=== PATIENT | female | born 1965 | race Caucasian/White ===

== ENCOUNTER 2017-01-16 10:32 | Day surgery (SDC) | payer MEDICAID ==
[~2017-01-16] VITALS: Ht 157.5 cm; Wt 90.5 kg
[2017-01-16 11:48] LABS: HEMATOCRIT 47.9 % (36.0-48.0); HEMOGLOBIN 15.5 g/dL (12-16); MCH 28.6 pg (26.0-34.0); MCHC 32.4 g/dL (31.0-37.0); MCV 88.4 fL (80.0-100.0); MEAN PLATELET VOLUME 12.5 fL (7.4-10.4); RBC 5.42 10x6/uL (4.00-5.40); RDW 15.2 % (11.5-14.5); WBC 6.9 10x3/uL (4.8-10.8)
[2017-01-16] MEDS ORDERED: CELEXA20 MG PO (13:51)
[2017-01-16] MEDS ORDERED: AMITIZA24 MCG PO (13:51)
[2017-01-16] MEDS ORDERED: ROSACEA CREAM (13:52)
[2017-01-16] MEDS ORDERED: ACETAMINOPHEN500 M1 PO (13:52)
[2017-01-16] MEDS ORDERED: MIRALAX17 GM PO (13:53)
[2017-01-16] MEDS ORDERED: PROAIR HFA8.5 GM INH (13:53)
[2017-01-16 14:11] VITALS: BP 110/60; Ht 157.5 cm; Wt 90.5 kg
[2017-01-16] MEDS ORDERED: NEXIUM40 MG PO (16:15)
--- NOTE | 2017-01-22 12:04 | OP ---
PATIENT NAME: LISY DE LA O MEDICAL RECORD: [id number] :69 LOCATION:D[facility] ADMISSION DATE: SURGEON: RAFA BRAGA DO DATE OF OPERATION: 01/16/2017 PROCEDURE: Esophagogastroduodenoscopy with biopsy ENDOSCOPIST: Rafa Braga DO SCOPE: Olympus video gastroscope. MEDICATIONS: Propofol 100 mg per anesthesia. INDICATIONS FOR TIVA: COPD and tobacco abuse as well as obesity. INDICATIONS FOR PROCEDURE: Heartburn, pain provoked by eating and abdominal pain in the right upper quadrant. FINDINGS: Informed consent was given. The patient was made comfortable with the above medication. After reaching an adequate level of sedation by slow IV push, the patient was placed in her left side. The endoscope was then advanced through the mouth under direct visualization to the second portion of the duodenum. The proximal, middle and distal thirds of the esophagus had normal mucosa. At the GE junction, there was some very mild grade A reflux induced esophagitis. Scope was advanced in the stomach and retroflexed to view the cardia, where a small sliding hiatal hernia was present. Scope was then advanced down through the body of the stomach down to the antrum and prepyloric region. The body and antrum revealed some gastritis evidenced by some granularity and erythema as well as friability of the mucosa. In the distal antrum and prepyloric region, there was a gastric ulcer, which had a clean base. It measured approximately 4 mm in diameter and was superficial. There were no bleeding stigmata present. Scope was then advanced through the pylorus into the duodenum where the bulb and second portion of the duodenum appeared normal. The scope was brought back into the stomach where random biopsies were taken of the stomach and sent for histology. Scope was then withdrawn from the patient. The patient tolerated the procedure well and there were no complications. ESTIMATED BLOOD LOSS: Less than 5 cc. IMPRESSION: 1. LA class A, mild reflux induced esophagitis. 2. Small sliding hiatal hernia. 3. Peptic ulcer disease. 4. Gastritis, biopsied with cold forceps. PLAN AND RECOMMENDATIONS: 1. Restart Nexium at 40 mg daily and continue for 8 weeks' duration. 2. We will need a repeat endoscopy to look at healing of ulceration. If the ulcer is not healing, biopsies will be taken at that time. 3. Recommend a PIPIDA scan to look at the function of the gallbladder. 4. Consider gastric emptying study, if all other studies are normal and the patient continues to have abdominal pain. TRANSINT:[id number] Voice Confirmation ID: [id number] DOCUMENT ID: [id number] OPERATIVE REPORT [id number] LISY DE LA O,RAFA Zafar DO at 1204 CC: [id number] DICTATION DATE: 01/16/17 1550 ALL TERRAIN VEHICLE TECHNICIAN: 01/17/17 0031 [facility] 01/16/17 [place] [id number] [place] [address]
== END 2017-01-16 16:45 | disposition home or self-care (01) ==
LOC: D.OPS 10:32
PROVIDERS: Anesthesiology
DX: K29.71 Gastritis, unspecified, with bleeding (principal); K21.0 Gastro-esophageal reflux disease with esophagitis; K44.9 Diaphragmatic hernia without obstruction or gangrene; F17.200 Nicotine dependence, unspecified, uncomplicated; J44.9 Chronic obstructive pulmonary disease, unspecified; K27.4 Chronic or unspecified peptic ulcer, site unspecified, with hemorrhage

== ENCOUNTER → 2017-01-31 08:37 | Outpatient (CLI) | payer BC ==
[2017-01-16 14:11] VITALS: BMI 36.5
[~2017-01-31 08:37] MED LIST: ACETAMINOPHEN500 M1 PO; AMITIZA24 MCG PO; CELEXA20 MG PO; MIRALAX17 GM PO; NEXIUM40 MG PO; PROAIR HFA8.5 GM INH; ROSACEA CREAM
== END | disposition home or self-care (01) ==
LOC: D.NM 08:37
DX: R12 Heartburn (principal); R10.11 Right upper quadrant pain

== ENCOUNTER → 2017-02-08 12:34 | Outpatient (CLI) | payer BC ==
[2017-01-16 14:11] VITALS: BMI 36.5
== END | disposition home or self-care (01) ==
LOC: D.NM 12:34
DX: R12 Heartburn (principal); R10.11 Right upper quadrant pain

== ENCOUNTER 2017-04-03 10:15 | Day surgery (SDC) | payer BC ==
[~2017-04-03] VITALS: Ht 157.5 cm; Wt 91.4 kg
--- NOTE | ~2017-04-03 | OP ---
PATIENT NAME: LISY DE LA O MEDICAL RECORD: [id number] :69 [facility]ATION:[facility] ADMISSION DATE: SURGEON: NIR THAKKAR DO DATE OF OPERATION: 04/03/2017 PROCEDURE: EGD. INDICATION: Reevaluation of gastric ulcer. SCOPE: Olympus video gastroscope. MEDICATIONS: Propofol 150 mg IV per anesthesia. ESTIMATED BLOOD LOSS: None. COMPLICATIONS: None. FINDINGS: Informed consent was given. The patient was made comfortable with the above medication. After reaching an adequate level of sedation by slow IV push, the patient was placed on her left side. The endoscope was then advanced under direct visualization through the mouth to the second portion of the duodenum. The upper, middle, and distal thirds of the esophagus appeared normal. At the GE junction, there were very minimal signs of reflux esophagitis. This appeared slightly improved from her recent examination in December. Scope was advanced beyond the GE junction into the stomach and retroflexed to view the cardia of the stomach where a small sliding hiatal hernia was present. The fundus and body of the stomach appeared normal. The endoscope was advanced down into the antrum and prepyloric region where the previously identified gastric ulcer was present. There was some granulation tissue here consistent with healed ulceration. There were no exudates or other abnormalities. The endoscope was advanced beyond the pylorus into the duodenum where the bulb and second portion of the duodenum appeared normal. The endoscope was then withdrawn from the patient. The patient tolerated the procedure well and there were no complications. IMPRESSION: 1. Reflux esophagitis grade A, improved from previous. 2. Small sliding hiatal hernia. 3. Peptic ulcer disease with improvement and healing of past gastric ulcers. PLAN AND RECOMMENDATIONS: 1. Discharge home when recovery parameters are met. 2. Continue current diet. 3. Continue current medications. 4. Consider reducing Nexium used to 20 mg daily or as needed. 5. Follow up in GI clinic as needed. TRANSINT:[id number] Voice Confirmation ID: [id number] DOCUMENT ID: [id number] OPERATIVE REPORT [id number] LISY DE LA O NIR THAKKAR DO CC: [id number] DICTATION DATE: 04/03/17 1341 BILLET INSPECTOR: 04/03/17 2232 [facility] 04/03/17 [place] [address]
[2017-04-03 10:47] LABS: BASOPHILS 0.3 % (0-2); EOSINOPHILS 2.9 % (0-7); HEMATOCRIT 48.1 % (36.0-48.0); HEMOGLOBIN 15.6 g/dL (12-16); IMMATURE GRANULOCYTES 0.1 % (0-5); LYMPHOCYTES 25.7 % (15-50); MCH 29.3 pg (26.0-34.0); MCHC 32.4 g/dL (31.0-37.0); MCV 90.4 fL (80.0-100.0); MEAN PLATELET VOLUME 12.5 fL (7.4-10.4); MONOCYTES 7.4 % (2-11); NEUTROPHILS 63.6 % (40-80); RBC 5.32 10x6/uL (4.00-5.40); RDW 14.5 % (11.5-14.5); WBC 7.9 10x3/uL (4.8-10.8)
[2017-04-03 10:52] LABS: PLATELET COUNT 215 10x3/uL (130-400)
[2017-04-03 11:05] LABS: CALC OSMOLALITY 277 mosm/kg (275-300); CALCIUM 9.6 mg/dL (8.5-10.1); CARBON DIOXIDE 30.6 mmol/L (21.0-32.0); CHLORIDE - SERUM 102 mmol/L (98-107); CREATININE - SERUM 0.8 mg/dL (0.6-1.3); GLUCOSE 93 mg/dL (74-106); POTASSIUM - SERUM 4.4 mmol/L (3.5-5.1); SODIUM 140 mmol/L (136-145); UREA NITROGEN 11 mg/dL (7-18); eGFR NON AFRICAN AMERICAN 81 mL/min (90-120)
[2017-04-03] MEDS ORDERED: KEFLEX250 MG PO (11:36)
[2017-04-03 11:41] VITALS: BP 105/62; Ht 157.5 cm; Wt 91.4 kg
--- NOTE | 2017-04-03 14:26 | NUR ---
1350-RECD TO ROOM FROM GI LAB. ALERT. RESP WITH EASE. 1400-FULL LIQUIDS SERVED. 1415-NO NAUSEA. IV D/C 1420-VOIDS, DRESSED. D/C INSTRUCTIONS REVIEWED. 1422-D/C HOME VIA W/C.
== END 2017-04-03 14:22 | disposition home or self-care (01) ==
LOC: D.OPS 10:15
PROVIDERS: Anesthesiology
DX: K21.0 Gastro-esophageal reflux disease with esophagitis (principal); K44.9 Diaphragmatic hernia without obstruction or gangrene; K27.9 Peptic ulcer, site unspecified, unspecified as acute or chronic, without hemorrhage or perforation

== ENCOUNTER 2017-05-06 09:57 | Day surgery (SDC) | payer BC ==
[~2017-05-06] VITALS: Ht 157.5 cm; Wt 90.9 kg
[~2017-05-06 09:57] MED LIST changes: +KEFLEX250 MG PO
[2017-05-06 11:39] VITALS: BP 106/64; Ht 157.5 cm; Wt 90.9 kg
--- NOTE | 2017-05-06 14:31 | NUR ---
1400 FULL LIQUID TRAY PROVIDED
--- NOTE | 2017-05-06 14:31 | NUR ---
1415 NINI TRAY WELL READY TO GO HOME PER PT PIV DC W/CATHETER TIP INTACT
--- NOTE | 2017-05-06 14:45 | NUR ---
1440 ESCORTED PT OUT TO CAR W/ DRIVING
--- NOTE | 2017-05-08 16:52 | OP ---
PATIENT NAME: LISY DE LA O MEDICAL RECORD: [id number] :69 LOCATION:[facility] ADMISSION DATE: SURGEON: NIR THAKKAR DO OPERATION DATE: 05/06/17 PROCEDURE: Colonoscopy with hot forceps polypectomy. INDICATIONS FOR PROCEDURE: Left lower quadrant abdominal pain and constipation. SCOPE: Regroup Therapy video pediatric colonoscope. MEDICATIONS: Propofol 400 milligrams IV per anesthesia. WITHDRAWAL TIME: 12 minutes. ESTIMATED BLOOD LOSS: Minimal. COMPLICATIONS: None. FINDINGS: Informed consent was given. The patient was made comfortable with the above medication. After reaching an adequate level of sedation by slow IV push, the patient was placed on her left side. The endoscope was then advanced under direct visualization through the rectum to the cecum with visualization of the appendiceal orifice and ileocecal valve. The endoscope was slowly withdrawn, and the mucosa was carefully examined. In the ascending colon there was a single polyp which was benign appearing and sessile. It measured approximately 4 millimeters in size and was removed with hot forceps. In the sigmoid colon there were two separate benign appearing sessile polyps which measured approximately 3-4 millimeters in size. They were both removed with hot forceps in one piece and retrieved. The final polyp was located in the rectum. It was benign appearing and sessile. It measured approximately 4 millimeters in size. It was removed in one piece with hot forceps. The endoscope was retroflexed in the rectum where small, nonbleeding internal hemorrhoids were visualized. The endoscope was then completely withdrawn from the patient. The patient tolerated the pr ocedure well, and there were no complications. IMPRESSIONS: 1. Four separate polyps as described above. All removed with hot forceps. 2. Small nonbleeding internal hemorrhoids. 3. Abdominal pain secondary to constipation. PLAN/RECOMMENDATIONS: 1. Discharge home when recovery parameters are met. 2. Continue current medication including Amitiza 24 mcg twice a day and MiraLax as needed. 3. High fiber diet. 4. Supplement diet with Metamucil one to two tablespoons daily. 5. Follow up on biopsy specimen results. 6. Recall colonoscopy in three to five years pending pathology polyps removed today. OPERATIVE REPORT [id number] LISY DE LA O NIR THAKKAR DO at 4630 CC: [id number] DICTATION DATE: 05/06/17 1200 DECK CADET: DM 05/06/17 1501 [facility] 05/06/17 [place] [id number] [place] [id number]
== END 2017-05-06 14:40 | disposition home or self-care (01) ==
LOC: D.OPS 09:57
DX: K63.5 Polyp of colon (principal); K64.8 Other hemorrhoids; K59.00 Constipation, unspecified; Z01.812 Encounter for preprocedural laboratory examination

== ENCOUNTER → 2018-11-26 12:53 | Outpatient (CLI) | payer MEDICAID ==
[2017-05-06 11:39] VITALS: BMI 36.6
[2018-11-26 14:15] LABS: BASOPHILS 0.3 % (0-2); EOSINOPHILS 3.5 % (0-7); HEMATOCRIT 41.6 % (36.0-48.0); HEMOGLOBIN 12.6 g/dL (12-16); IMMATURE GRANULOCYTES 0.1 % (0-5); LYMPHOCYTES 26.9 % (15-50); MCH 29.1 pg (26.0-34.0); MCHC 30.3 g/dL (31.0-37.0); MCV 96.1 fL (80.0-100.0); MEAN PLATELET VOLUME 11.5 fL (7.4-10.4); MONOCYTES 5.8 % (2-11); NEUTROPHILS 63.4 % (40-80); PLATELET COUNT 181 10x3/uL (130-400); RBC 4.33 10x6/uL (4.00-5.40); RDW 12.7 % (11.5-14.5); WBC 7.7 10x3/uL (4.8-10.8)
[2018-11-26 15:16] LABS: ERYTHROCYTE SEDIMENTATION RATE 27 mm/hr (0-30)
== END | disposition home or self-care (01) ==
LOC: D.CT 12:53
PROVIDERS: Internal Medicine Gastroenterology
DX: R10.32 Left lower quadrant pain (principal); M54.5 Low back pain; K62.5 Hemorrhage of anus and rectum; R53.83 Other fatigue

== ENCOUNTER → 2019-06-17 08:21 | Outpatient (CLI) | payer MEDICAID ==
[2017-05-06 11:39] VITALS: BMI 36.6
== END | disposition home or self-care (01) ==
LOC: D.MRI 08:21
PROVIDERS: ATTEND Internal Medicine Gastroenterology
DX: K76.0 Fatty (change of) liver, not elsewhere classified (principal); R10.9 Unspecified abdominal pain; R11.0 Nausea

== ENCOUNTER 2019-09-28 08:37 | Day surgery (SDC) | payer MEDICAID ==
[~2019-09-28] VITALS: Ht 157.5 cm; Wt 909.1 kg
[2019-09-28 09:09] LABS: HEMATOCRIT 41.4 % (36.0-48.0); HEMOGLOBIN 12.6 g/dL (12-16); MCH 28.7 pg (26.0-34.0); MCHC 30.4 g/dL (31.0-37.0); MCV 94.3 fL (80.0-100.0); MEAN PLATELET VOLUME 12.5 fL (7.4-10.4); RBC 4.39 10x6/uL (4.00-5.40); RDW 13.8 % (11.5-14.5); WBC 7.2 10x3/uL (4.8-10.8)
[2019-09-28] MEDS ORDERED: XANAX1 MG PO (09:32)
[2019-09-28] MEDS ORDERED: TYLENOL W/CODEI1 TAB PO (09:36)
[2019-09-28 09:37] VITALS: BP 118/69; Ht 157.5 cm; Wt 909.1 kg
--- NOTE | 2019-09-28 12:47 | NUR ---
1231 IV DC'D. CATHETER TIP INTACT. NO BLEEDING AT SITE. BANDAID APPLIED. 1241 PT DISCHARGED HOME VIA WC. PT HAS HER PERSONAL OXYGEN TANK ON WITH 3L/MIN VIA [facility].
--- NOTE | 2019-10-01 12:05 | OP ---
PATIENT NAME: LISY DE LA O MEDICAL RECORD: [id number] :69 LOCATION:[facility] ADMISSION DATE: SURGEON: NIR THAKKAR DO DATE OF OPERATION: 09/28/2019 PROCEDURE: EGD with biopsies. INDICATIONS FOR PROCEDURE: Heartburn, right upper quadrant abdominal pain, epigastric abdominal tenderness. SCOPE: Olympus video gastroscope. MEDICATIONS: Propofol 200 mg IV per anesthesia. ESTIMATED BLOOD LOSS: Minimal. COMPLICATIONS: None. FINDINGS: Informed consent was given. The patient was made comfortable with the above medication. After reaching an adequate level of sedation by slow IV push, the patient was placed on her left side. The endoscope was advanced under direct visualization through the mouth to the second portion of the duodenum with ease. The entire esophagus appeared normal. At the GE junction, there was evidence of LA class A reflux-induced esophagitis. The endoscope was advanced beyond the GE junction into the stomach and retroflexed to view the cardia, where a very small sliding hiatal hernia was present. The fundus and body of the stomach appeared normal. As the antrum and prepyloric regions of the stomach were reached, there were some erythema and granularity consistent with mild gastritis. There was also a single superficial small ulceration located in the prepyloric area. Random cold forceps biopsies were taken to submit for histopathology and to rule out the presence of H. pylori. The endoscope was advanced beyond the pylorus into the duodenum, which appeared normal to the second portion. Random cold forceps biopsies were taken to submit for histopathology. The endoscope was withdrawn from the patient. The patient tolerated the procedure well and there were no complications. IMPRESSION: 1. LA class A reflux-induced esophagitis. 2. Small sliding hiatal hernia. 3. Gastritis. 4. Small superficial gastric ulcer located in the prepyloric region of the stomach. PLAN AND RECOMMENDATIONS: 1. Discharge home when recovery parameters are met. 2. Follow up biopsy specimen results. 3. GERD diet and reflux precautions. 4. We will start omeprazole or an equivalent proton pump inhibitor at 40 mg daily. 5. Right upper quadrant ultrasound regarding the epigastric right upper quadrant pain. 6. Consider PIPIDA scan if ultrasound is normal. 7. Follow up in GI clinic in 2 months with further workup as indicated, if continued symptoms. OPERATIVE REPORT [id number] LISY DE LA O TRANSINT:[id number] Voice Confirmation ID: [id number] DOCUMENT ID: [id number] NIR THAKKRA DO at 1205 CC: [id number] DICTATION DATE: 09/28/19 112 ASSOCIATE SOFTWARE ENGINEER: 09/28/19 1509 [facility] 09/28/19 [place] [id number] [place] [id number]
== END 2019-09-28 12:41 | disposition home or self-care (01) ==
LOC: D.OPS 08:37
PROVIDERS: Anesthesiology; ATTEND Internal Medicine Gastroenterology
DX: R12 Heartburn (principal); R10.11 Right upper quadrant pain; R10.816 Epigastric abdominal tenderness

== ENCOUNTER → 2019-11-11 09:29 | Outpatient (CLI) | payer MEDICAID ==
[2019-09-28 09:37] VITALS: BMI 366.9
[~2019-11-11 09:29] MED LIST changes: +TYLENOL W/CODEI1 TAB PO; +XANAX1 MG PO
[2019-11-12 14:09] LABS: ACTH 13.8 pg/mL (7.2-63.3)
== END | disposition home or self-care (01) ==
LOC: D.LAB 09:29 → D.CT 10:30
PROVIDERS: ATTEND Surgery
DX: E27.8 Other specified disorders of adrenal gland (principal)

== ENCOUNTER → 2019-11-17 09:03 | Outpatient (CLI) | payer MEDICAID ==
[2019-09-28 09:37] VITALS: BMI 366.9
== END | disposition home or self-care (01) ==
LOC: D.LABREF 09:03
PROVIDERS: ATTEND Surgery
DX: E27.8 Other specified disorders of adrenal gland (principal)